=== PATIENT | female | born 2000 | race Caucasian/White ===

== ENCOUNTER 2020-12-12 02:04 | Day surgery (SDC) | payer OTHER, SELFPAY ==
[2020-12-04 18:26] VITALS: BMI 29.2
--- NOTE | 2020-12-11 13:44 | P.PNAN_ITS ---
Anes - Initial Pre Proc Eval Procedure: Operation Date: 12/12/20 10:00 Proposed Procedures p Excision Subcutaneous Mass Left Middle Finger Proximal Phalanx with Frozen Section, Probable Full Thickness Skin Graft - Juan Hogan MD Date/Time: 12/11/20 13:44 Surgeon: Juan Hogan MD Pre Op Diagnosis: subq mass left middle finger proximal phalanx Patient Data Age: 20 Gender: F Height: 1.68 m Weight: 82 kg Allergies Allergy/AdvReac Type Severity Reaction Status Date / Time No Known Allergies Allergy Verified 12/04/20 18:24 Home Medications Medication Instructions Recorded Confirmed Type desog-e.estradiol/e.estradiol 0.01 tablet PO DAILY 12/04/20 12/04/20 History [Christianne (28)] Patient hx anesthesia problems: none Family hx anesthesia problems: none COUNT INCLUDES THE [facility] Past Medical History Medical History (Updated 12/11/20 @ 13:44 by Junior Rosales MD) Overweight (BMI 25.0-29.9) Social History Social History Smoking status: Never smoker Alcohol intake: never Substance use: never Living arrangements: with family Gender identity (if verbalized by the patient): Female Sexual Orientation (if Verbalized by the Patient): Straight or Heterosexual Spiritual care concerns: No Anes - Eval Final PreProcedure Day of Procedure 12/11/20 13:44 Patient weight: overweight Heart: regular rate and rhythm Lungs: clear to auscultation and normal air movement Airway: Mallampati scale class II Neurological: alert and oriented Last oral intake: >/= 8 hours ASA classification: II Emergent: no Anesthetic plan: proceed Anesthesia type and monitoring: general GIVS and LMA Informed Consent: The patient's anesthetic plan and its attendant risks and benefits were discussed with the patient/family/POA. Questions were solicited and answers provided to the satisfaction of the patient/family/POA.
--- NOTE | 2020-12-12 07:13 | WPDHPUPDATE1 ---
History and Physical Update Update Date/Time: 12/12/20 07:13 History and Physical has been reviewed, including an updated exam of the patient. There are NO changes in the patient's condition. Risks, benefits, and alternatives have been discussed and questions answered. Patient agrees to proceed with procedure.
[2020-12-12] MEDS: LACTATED RINGERS 1,000 ML 30 ML IV CONT (08:03)
[2020-12-12 08:04] VITALS: BMI 29.7
[2020-12-12 08:05] VITALS: BP 140/94; PULSE 80; RESP 18; TEMP 37.3; O2SAT 100
[2020-12-12 10:44] VITALS: BP 99/54; PULSE 70; RESP 14; O2SAT 97
[2020-12-12 11:10] VITALS: BP 113/60; PULSE 68; RESP 16; O2SAT 98
--- NOTE | 2020-12-12 11:10 | P.OPB_ITS ---
Procedure Note - Brief Procedure Note - Brief Date of procedure: 12/12/20 Pre-op diagnosis: subq mass left middle finger proximal phalanx Post-op diagnosis: other (Schwanomma ) Procedure performed: Excision of schwannoma of the dorsal left middle finger Anesthesia: MAC Surgeon: Juan Hogan MD [employer] Laboratory Director: Tyra cobb Estimated blood loss (mL): 1 Drains: No Packing: No Pathology: yes Complications: No immediate complications Condition: stable Disposition: same day
--- NOTE | 2020-12-12 11:12 | W.PM.PROC2 ---
Procedure Note - Detailed Date of Procedure 12/12/20 Pre-op Diagnosis subq mass left middle finger proximal phalanx Post-op Diagnosis other (Schwannoma) Procedure Performed Excision of 1 cm schwannoma of the dorsal left middle finger Surgeon Juan Hogan MD [employer] Tyra cobb Anesthesia MAC Description of Procedure The site was marked on the patient's finger in the holding area. This was a red tender nodule involved with the deep dermis over the proximal phalanx. He was taken into the operating room placed supine on the operating table. A time-out was held and confirmed. The extremity was prepped and draped in usual fashion. She was given IV sedation. The site was locally infiltrated with 1% lidocaine with epinephrine. The tourniquet was inflated to 250 mmHg. The dorsal midline incision was made. The mass was fibrous and very irregular on surface like sheep's wool. This was in the in here to the deep side of the dermis. It was less adherent to the extensor tendon sheath. The mass was trimmed out with blunt and sharp dissection. A executive candidate developer on the pathologist reports that the tumor is incompletely excised. The report from frozen section was that this is likely a schwannoma. There is no evidence that this is a malignant tumor. The wound was closed with a running 5 0 nylon a small bandage applied. Patient is being discharged instructions in wound care and follow-up. She has a prescription for tramadol 50 mg 8. Estimated Blood Loss 2 Drains No Packing No Pathology yes Complications No immediate complications Condition stable Disposition same day
[2020-12-12 11:35] VITALS: BP 126/77; PULSE 66; RESP 16
== END 2020-12-12 11:41 | disposition home or self-care (01) ==
PROVIDERS: PCP Family Medicine; Visit Provider Plastic Surgery
PROC: (CPT 26115; principal; 2020-12-12 10:00)
DX: C49.12 Malignant neoplasm of connective and soft tissue of left upper limb, including shoulder (principal)
CPT/HCPCS: 26115; 88305; 88331; 88342; J2250; J2704; J3010; J7120